=== PATIENT | female | born 1955 | race Caucasian/White ===

== ENCOUNTER 2017-10-14 15:39 | Emergency (ER) | payer OTHER ==
[~2017-10-14] VITALS: Ht 172.7 cm; Wt 90.7 kg
--- NOTE | 2017-10-14 16:00 | NUR ---
PT BIB FRIEND WITH A C/O RUQ ABD PAIN AND LOWER ABD PAIN. PT IS ALSO C/O VAGINAL BLEEDING X 2 MONTHS. PT IS IN MENOPAUSE AND IS WORRIED ABOUT THE BLEEDING. PT SPEAKS [place] AND FRIEND IS AT THE BEDSIDE TRANSLATING FOR PT. URINE SAMPLE OBTAINED AND SENT TO LAB.
--- NOTE | 2017-10-14 16:02 | NUR ---
DR. APPIAH IS AT THE BEDSIDE EVALUATING THE PT.
[2017-10-14 16:18] LABS: APPEARANCE,URINE Clear (CLEAR); BILIRUBIN,URINE Negative (NEGATIVE); BLOOD, URINE Negative Ery/uL (NEGATIVE); COLOR,URINE Yellow (YELLOW); KETONES,URINE Negative (NEGATIVE); LEUKOCYTE ESTERASE ,URINE Negative (NEGATIVE); NITRITE, URINE Negative (NEGATIVE); PH,URINE 5.5 (5.0-8.0); PROTEIN,URINE Negative (NEGATIVE); UGLUCOSE Negative (NEGATIVE); UROBILINOGEN,URINE 0.2 EU/dL (0.2)
--- NOTE | 2017-10-14 16:18 | NUR ---
18G IV STARTED IN RAC. BLOOD WAS DRAWN AND SENT TO LAB.
--- NOTE | 2017-10-14 16:22 | NUR ---
IN AND OUT CATH DONE. DR. APPIAH IS AT THE BEDSIDE FOR PELVIC EXAM PRIOR TO STRAIGHT CATH. URINE SAMPLE OBTAINED AND SENT TO LAB. LAB INSTRUCTED TO USE THE 2ND SAMPLE, PER DR. APPIAH.
[2017-10-14 16:23] LABS: BASOPHILS % (AUTO) 0.6 % (0.0-2.0); EOSINOPHILS % (AUTO) 0.7 % (0.0-6.0); HEMATOCRIT 41 % (33-45); HEMOGLOBIN 14.2 g/dL (11.5-14.8); LYMPHOCYTES # (AUTO) 2.4 /CMM (0.8-4.8); LYMPHOCYTES % (AUTO) 41.6 % (20.0-44.0); MEAN CORPUSCULAR HEMOGLOBIN 30 PG (26.0-33.0); MEAN CORPUSCULAR HGB CONC 34 g/dl (31.0-36.0); MEAN CORPUSCULAR VOLUME 88 fL (82-100); MONOCYTES # (AUTO) 0.5 /CMM (0.1-1.30); MONOCYTES % (AUTO) 9.4 % (2.0-12.0); NEUTROPHILS # (AUTO) 2.8 /CMM (1.8-8.9); NEUTROPHILS % (AUTO) 47.7 % (43.0-81.0); PLATELET COUNT (AUTO) 258 /CMM (150-450); RDW COEFFICIENT OF VARIATION 12.3 (11.5-15.0); RED BLOOD CELL COUNT(AUTO) 4.69 MIL/uL (4.0-5.2); WHITE BLOOD COUNT (AUTO) 5.7 K/uL (4.3-11.0)
--- NOTE | 2017-10-14 16:24 | NUR ---
PT REC'D WARM BLANKETS AND WILL CONTINUE TO BE MONITORED.
[2017-10-14 16:31] LABS: CALCIUM, SERUM 9.5 mg/dL (8.5-10.1); CREATININE 1.1 mg/dL (0.6-1.3)
[2017-10-14 16:37] LABS: ALBUMIN 3.6 g/dL (3.4-5.0); BILIRUBIN,DIRECT 0.1 mg/dL (0.0-0.2); BILIRUBIN,TOTAL 0.4 mg/dL (0.2-1.0); TOTAL PROTEIN, SERUM 8.5 g/dL (6.4-8.2)
[2017-10-14 16:38] LABS: APPEARANCE,URINE Clear (CLEAR); BILIRUBIN,URINE Negative (NEGATIVE); BLOOD, URINE Negative Ery/uL (NEGATIVE); COLOR,URINE Yellow (YELLOW); KETONES,URINE Negative (NEGATIVE); LEUKOCYTE ESTERASE ,URINE Negative (NEGATIVE); NITRITE, URINE Negative (NEGATIVE); PROTEIN,URINE Negative (NEGATIVE); UGLUCOSE Negative (NEGATIVE); UROBILINOGEN,URINE 0.2 EU/dL (0.2)
[2017-10-14 16:45] LABS: INR 0.96 (0.87-1.13)
--- NOTE | 2017-10-14 17:23 | NUR ---
US TECH AT THE BEDSIDE.
--- NOTE | 2017-10-14 17:55 | NUR ---
PT AMBULATED TO THE BATHROOM AND BACK. US CONTINUE.
[2017-10-14 18:56] VITALS: BP 148/79
== END 2017-10-14 18:57 | disposition home or self-care (01) ==
LOC: ER 15:43
DX: N95.0 Postmenopausal bleeding (principal); R10.31 Right lower quadrant pain; R10.11 Right upper quadrant pain; F32.9 Major depressive disorder, single episode, unspecified; I10 Essential (primary) hypertension; K59.00 Constipation, unspecified; N93.9 Abnormal uterine and vaginal bleeding, unspecified
CPT/HCPCS: 36415; 51701; 71045; 76700; 76856; 80048; 80076; 81001 ×2; 83690; 85025; 85730; 87086; 99285; A4606; Z7610; 81000-TC

== ENCOUNTER 2018-02-02 10:42 | Emergency (ER) | payer OTHER ==
[~2018-02-02] VITALS: Ht 172.7 cm; Wt 90.7 kg
--- NOTE | 2018-02-02 11:15 | NUR ---
right sided abd pain x 3 days. + constipation, last bm 2 days [employer], NAD noted, VSS, resp even and unlabored, waiting for md eval.
--- NOTE | 2018-02-02 11:20 | NUR ---
US TECH AT BEDSIDE.
[2018-02-02 11:31] LABS: BASOPHILS % (AUTO) 0.8 % (0.0-2.0); EOSINOPHILS % (AUTO) 0.5 % (0.0-6.0); HEMATOCRIT 44 % (33-45); HEMOGLOBIN 14.6 g/dL (11.5-14.8); LYMPHOCYTES # (AUTO) 2.1 /CMM (0.8-4.8); LYMPHOCYTES % (AUTO) 37.5 % (20.0-44.0); MEAN CORPUSCULAR HGB CONC 33 g/dl (31.0-36.0); MEAN CORPUSCULAR VOLUME 91 fL (82-100); MONOCYTES # (AUTO) 0.6 /CMM (0.1-1.30); MONOCYTES % (AUTO) 10.2 % (2.0-12.0); NEUTROPHILS # (AUTO) 2.9 /CMM (1.8-8.9); PLATELET COUNT (AUTO) 295 /CMM (150-450); RDW COEFFICIENT OF VARIATION 12.6 (11.5-15.0); RED BLOOD CELL COUNT(AUTO) 4.85 MIL/uL (4.0-5.2); WHITE BLOOD COUNT (AUTO) 5.6 K/uL (4.3-11.0)
[2018-02-02 11:40] LABS: CALCIUM, SERUM 9.4 mg/dL (8.5-10.1); CREATININE 0.8 mg/dL (0.6-1.3); POTASSIUM 4.2 mmol/L (3.5-5.1)
[2018-02-02 11:46] LABS: ALBUMIN 3.6 g/dL (3.4-5.0); BILIRUBIN,DIRECT 0.1 mg/dL (0.0-0.2); BILIRUBIN,TOTAL 0.3 mg/dL (0.2-1.0); TOTAL PROTEIN, SERUM 8.6 g/dL (6.4-8.2)
[2018-02-02 12:27] VITALS: BP 137/79
[2018-02-02 12:27] LABS: APPEARANCE,URINE Clear (CLEAR); BILIRUBIN,URINE Negative (NEGATIVE); BLOOD, URINE Negative Ery/uL (NEGATIVE); COLOR,URINE Yellow (YELLOW); KETONES,URINE Negative (NEGATIVE); LEUKOCYTE ESTERASE ,URINE Trace (NEGATIVE); NITRITE, URINE Negative (NEGATIVE); PROTEIN,URINE Negative (NEGATIVE); UGLUCOSE Negative (NEGATIVE); UROBILINOGEN,URINE 0.2 EU/dL (0.2)
[2018-02-02 12:41] LABS: BACTERIA,URINE Few /HPF (None Seen); RBC,URINE 0-3 /HPF (0-2); SQUAMOUS EPITHELIAL CELL,UR Moderate /HPF (None Seen)
--- NOTE | 2018-02-02 12:48 | NUR ---
Patient discharged to home in stable condition. Written and verbal after care instructions given. Patient verbalizes understanding of instruction. Prescription given.
== END 2018-02-02 12:46 | disposition home or self-care (01) ==
LOC: ER 10:47
DX: K29.00 Acute gastritis without bleeding (principal); F32.9 Major depressive disorder, single episode, unspecified; I10 Essential (primary) hypertension
CPT/HCPCS: 36415; 76705; 80048; 80076; 81001; 83690; 85025; 99285; A4606; Z7610; 81000-TC